=== PATIENT | male | born 1995 | race Caucasian/White ===

== ENCOUNTER 2017-01-14 20:56 | Emergency (ER) | payer OTHER ==
--- NOTE | 2017-01-15 01:13 | ED ORDER SUMMARY ---
..... Patient: ESTRELLITA JAVIER OrderSheet [facility] VisitID: [id number] [place] [address] 21y, M Registration Date/Time: 01/14/2017 ORDER SHEET Weight: 104.3 kg (stated) Allergies: No Known Drug Allergy GENERAL ORDERS: Irrigate Wounds (01:08 01/15/2017 Home Hassan) (Ack 1:31 Silas REllaNElla) (1:54 Janell Leone) MEDICATION ORDERS: IV FLUIDS: ORDER SHEET NOTES: [Electronically signed by Zahida Honeycutt R.N. (01:59 01/15/2017)] [Electronically signed by Jaylen Bobo Dr. (03:58 01/18/2017)] [Electronically locked/signed by Zahida Honeycutt R.N. (01:59 01/15/2017)]
--- NOTE | 2017-01-15 01:13 | ED ORDER SUMMARY ---
..... Patient: ESTRELLITA JAVIER OrderSheet [facility] VisitID: [id number] [place] [address] 21y, M Registration Date/Time: 01/14/2017 ORDER SHEET Weight: 104.3 kg (stated) Allergies: No Known Drug Allergy GENERAL ORDERS: Irrigate Wounds (01:08 01/15/2017 Home Hassan) (Ack 1:31 Silas REllaNElla) (1:54 Janell Leone) MEDICATION ORDERS: IV FLUIDS: ORDER SHEET NOTES: [Electronically signed by Zahida Honeycutt R.N. (01:59 01/15/2017)] [Electronically signed by Jaylen Bobo Dr. (03:58 01/18/2017)] [Electronically locked/signed by Zahida Honeycutt R.N. (01:59 01/15/2017)]
--- NOTE | 2017-01-15 01:13 | ED NURSING NOTES ---
Clinical Report - Nurses [address] [place] [address] 01/14/2017 21:00 Patient: ESTRELLITA JAVIER TRIAGE Triage time 00:27. Acuity: LEVEL 4. Chief Complaint: INJURY TO LEFT HAND. --00:32 Zahida Honeycutt R.N. 00:27 01/15/17. BP: 125/79 taken on the left arm, while sitting. HR: 79 (regular and normal rate). RR: 18. O2 saturation: 100%. Temp: 98 F. Pain level now: 09/28. --00:32 Zahida Honeycutt R.N. Weight: 104.3 kg stated. Height/Length: 69 inches Per Patient. BMI: 34. --00:27 Zahida Honeycutt R.N. Medications None. --00:30 Zahida Honeycutt R.N. Allergies No Known Drug Allergy. --00:30 Zahida Honeycutt R.N. History Arrived by private vehicle. Historian: patient. Accompanied by friend. Primary physician (none). This occurred (at about 2030 PM). He sustained a laceration from a knife. ( pt cutting onion with a new knife and slipped into left ring finger, small laceration noted bleeding controlled). 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 SOCIAL HX: Never smoker. Regular alcohol use; consumes three beers a day. Last drink was 4 hours ago. History of drug use: marijuana. No infectious disease exposure. ABUSE ASSESSMENT: No report of abuse. SELF HARM ASSESSMENT: A self harm assessment was performed. The patient answered "no" to the question "Have you recently felt down, depressed, or hopeless?", "Have you noticed less interest or pleasure in doing things?", "Do you have thoughts of harming or killing yourself?", "Are you here because you tried to hurt yourself?", "Have you ever tried to hurt yourself before today?", "Have you recently had thoughts about harming or killing others?" and "Do you have any dangerous items in your possession?". FALL RISK ASSESSMENT: Fall risk assessment completed. No fall risk identified. NUTRITIONAL RISK ASSESSMENT: The nutritional risk assessment revealed no deficiencies. FUNCTIONAL ASSESSMENT: Functional assessment: no impairments noted. LEARNING NEEDS ASSESSMENT: The learning needs assessment revealed no barriers. SKIN INTEGRITY ASSESSMENT: Skin integrity risk assessment completed. No skin integrity risk identified. --00:32 Zahdia Honeycutt R.N. PROBLEMS: no known problems. ADDITIONAL SURGERIES: Appendectomy. Toe. --00:30 Zahida Honeycutt R.N. Interventions ID band on patient. To treatment room. --00:32 Zahida Honeycutt R.N. PHYSICAL ASSESSMENT Ambulatory to room. GENERAL / NEURO / PSYCH: Oriented X 4. Alert. Appears in no acute distress. EXTREMITIES: Capillary refill is less than 2 seconds in the extremities. Extremity pulses are within normal limits. Extremities exhibit normal ROM. Neuro-vascular status intact to the extremity. Left hand: subcutaneous 1.0 cm laceration with controlled bleeding. SKIN: Skin intact. Skin is warm and dry. Single subcutaneous laceration to left ring finger. --00:33 Zahida Honeycutt R.N. NURSING PROGRESS NOTES Reassurance given. Two patient identifiers checked. Call light placed in reach. Side rails up x 2. Bed placed in lowest position. Brakes of bed on. Patient ready for evaluation- chart flagged. --00:33 Zahida Honeycutt R.N. DISPOSITION / DISCHARGE Departure time: 0154. Condition at departure: improved and stable. No learning barriers present. Discharge instructions provided and reviewed with the patient. Reviewed wound care instructions. Patient verbalized understanding. Written instructions provided in Ivorian. No medication instructions or activity restrictions. The patient was discharged home and accompanied by lean process deployment consultant. He left the Emergency Department ambulatory and via private vehicle. Clerical Office Worker driving. --01:58 Zahida Honeycutt R.N. 01:57 01/15/17. BP: deferred. HR: deferred. RR: deferred. O2 saturation: deferred. Temp: deferred. Pain level now deferred. --01:58 Zahida Honeycutt R.N. Locked/Released at 01/15/2017 1:59 by Zahida Honeycutt R.N.
--- NOTE | 2017-01-15 01:13 | ED NURSING NOTES ---
Clinical Report - Nurses [address] [place] [address] 01/14/2017 21:00 Patient: ESTRELLITA JAVIER TRIAGE Triage time 00:27. Acuity: LEVEL 4. Chief Complaint: INJURY TO LEFT HAND. --00:32 Zahida Honeycutt R.N. 00:27 01/15/17. BP: 125/79 taken on the left arm, while sitting. HR: 79 (regular and normal rate). RR: 18. O2 saturation: 100%. Temp: 98 F. Pain level now: 09/28. --00:32 Zahida Honeycutt R.N. Weight: 104.3 kg stated. Height/Length: 69 inches Per Patient. BMI: 34. --00:27 Zahida Honeycutt R.N. Medications None. --00:30 Zahida Honeycutt R.N. Allergies No Known Drug Allergy. --00:30 Zahida Honeycutt R.N. History Arrived by private vehicle. Historian: patient. Accompanied by friend. Primary physician (none). This occurred (at about 2030 PM). He sustained a laceration from a knife. ( pt cutting onion with a new knife and slipped into left ring finger, small laceration noted bleeding controlled). 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 SOCIAL HX: Never smoker. Regular alcohol use; consumes three beers a day. Last drink was 4 hours ago. History of drug use: marijuana. No infectious disease exposure. ABUSE ASSESSMENT: No report of abuse. SELF HARM ASSESSMENT: A self harm assessment was performed. The patient answered "no" to the question "Have you recently felt down, depressed, or hopeless?", "Have you noticed less interest or pleasure in doing things?", "Do you have thoughts of harming or killing yourself?", "Are you here because you tried to hurt yourself?", "Have you ever tried to hurt yourself before today?", "Have you recently had thoughts about harming or killing others?" and "Do you have any dangerous items in your possession?". FALL RISK ASSESSMENT: Fall risk assessment completed. No fall risk identified. NUTRITIONAL RISK ASSESSMENT: The nutritional risk assessment revealed no deficiencies. FUNCTIONAL ASSESSMENT: Functional assessment: no impairments noted. LEARNING NEEDS ASSESSMENT: The learning needs assessment revealed no barriers. SKIN INTEGRITY ASSESSMENT: Skin integrity risk assessment completed. No skin integrity risk identified. --00:32 Zahida Honeycutt R.N. PROBLEMS: no known problems. ADDITIONAL SURGERIES: Appendectomy. Toe. --00:30 Zahida Honeycutt R.N. Interventions ID band on patient. To treatment room. --00:32 Zahida Honeycutt R.N. PHYSICAL ASSESSMENT Ambulatory to room. GENERAL / NEURO / PSYCH: Oriented X 4. Alert. Appears in no acute distress. EXTREMITIES: Capillary refill is less than 2 seconds in the extremities. Extremity pulses are within normal limits. Extremities exhibit normal ROM. Neuro-vascular status intact to the extremity. Left hand: subcutaneous 1.0 cm laceration with controlled bleeding. SKIN: Skin intact. Skin is warm and dry. Single subcutaneous laceration to left ring finger. --00:33 Zahida Honeycutt R.N. NURSING PROGRESS NOTES Reassurance given. Two patient identifiers checked. Call light placed in reach. Side rails up x 2. Bed placed in lowest position. Brakes of bed on. Patient ready for evaluation- chart flagged. --00:33 Zahida Honeycutt R.N. DISPOSITION / DISCHARGE Departure time: 0154. Condition at departure: improved and stable. No learning barriers present. Discharge instructions provided and reviewed with the patient. Reviewed wound care instructions. Patient verbalized understanding. Written instructions provided in Indonesian. No medication instructions or activity restrictions. The patient was discharged home and accompanied by hi ranger operator. He left the Emergency Department ambulatory and via private vehicle. Strand And Binder Controller driving. --01:58 Zahida Honeycutt R.N. 01:57 01/15/17. BP: deferred. HR: deferred. RR: deferred. O2 saturation: deferred. Temp: deferred. Pain level now deferred. --01:58 Zahida Honeycutt R.N. Locked/Released at 01/15/2017 1:59 by Zahida Honeycutt R.N.
--- NOTE | 2017-01-18 03:58 | ED MED RECONCILIATION SUMMARY ---
Patient: ESTRELLITA JAVIER Medication Reconciliation Report [facility] VisitID: [id number] [address] [place] [address] 21y, M Registration Date/Time: 01/14/2017 Weight: 104.3 kg Height/Length: 69 in. BMI: 34.0 ALLERGIES: No Known Drug Allergy The patient's Home Medications are listed below: NONE. The source(s) of the original Home Medication information: Not obtained. The following Medications were given to the patient in the Emergency Department: None. The following Medications were prescribed to the patient: Acetaminophen (available over the counter): take according to label instructions. -- Jaylen Bobo Dr. Motrin (available over the counter): take according to label instructions. -- Jaylen Bobo Dr.
--- NOTE | 2017-01-18 03:58 | ED MED RECONCILIATION SUMMARY ---
Patient: ESTRELLITA JAVIER Medication Reconciliation Report [facility] VisitID: [id number] [address] [place] [address] 21y, M Registration Date/Time: 01/14/2017 Weight: 104.3 kg Height/Length: 69 in. BMI: 34.0 ALLERGIES: No Known Drug Allergy The patient's Home Medications are listed below: NONE. The source(s) of the original Home Medication information: Not obtained. The following Medications were given to the patient in the Emergency Department: None. The following Medications were prescribed to the patient: Acetaminophen (available over the counter): take according to label instructions. -- Jaylen Bobo Dr. Motrin (available over the counter): take according to label instructions. -- Jaylen Bobo Dr.
--- NOTE | 2017-01-18 03:58 | ED MAR SUMMARY ---
..... Medication Administration Record [facility] [address] [place], [place] [id number] Patient: ESTRELLITA JAVIER Visit ID: [id number] 21y, M Weight: 104.3 kg Height/Length: 69 in BMI: 34 ALLERGIES: No Known Drug Allergy
--- NOTE | 2017-01-18 03:58 | ED CLINICAL REPORT ---
Clinical Report - Physicians/Mid Levels [facility] [address] [place] [address] 01/14/2017 21:00 Patient: ESTRELLITA JAVIER Time Seen: 0045. Arrived- By private vehicle. Historian- patient. HISTORY OF PRESENT ILLNESS Chief Complaint: Injury to the left ring finger. The injury happened today. Occurred at home. ( states he was cutting an onion with a sharp knife and accidentally cut himself). The patient sustained a laceration from a knife. Patient is experiencing mild pain. Patient denies injury to the head or neck. No other injury. REVIEW OF SYSTEMS The patient sustained a laceration. No swelling, tingling, numbness, weakness or foreign body. All systems otherwise negative, except as recorded above. PAST HISTORY See nurses notes. Tetanus immunization status is up-to-date. Problems: no known problems. Medications: None. Allergies: No Known Drug Allergy. ADDITIONAL NOTES The nursing notes have been reviewed. PHYSICAL EXAM Vital Signs: 01/15/2017 00:27 BP: 125/79. HR: 79. RR: 18. O2 saturation: 100%. Temp: 98 F. Pain level now: 3/10. Blood pressure normal. Oxygen saturation normal. Appearance: Alert. Oriented X3. No acute distress. Eyes: Eyes normal inspection. No scleral icterus. CVS: Normal heart rate and rhythm. Heart sounds normal. Pulses normal. Respiratory: No respiratory distress. Breath sounds normal. Chest nontender. Abdomen: No visible injury. Soft and nontender. Bowel sounds normal. Skin: Skin warm and dry. Skin intact. Extremities: (left righ finger with 1 cm laceration. no tendon or ursula involvement. no other signs of injury. no gross contamination or FB.). No wrist injury. No hand injury. Neuro, Vascular and Tendons: Vascular status intact. Sensation intact. Motor intact. Tendon function intact. PROGRESS AND PROCEDURES Laceration Repair: Location: left ring finger. Length: 1.0cm. Complexity: simple (closed with tissue adhesive). Wound depth/shape- subcutaneous and linear. Distal neuro/vascular/tendon status normal. Anesthesia provided (none). Prepped with Hibiclens. Wound explored, irrigated and examined to the base in bloodless field extensively. Closure of skin. Skin adhesive used. Post-procedure: he is stable and there are no complications. Bleeding is controlled. Tetanus immunization up-to-date. Estimated blood loss: 3 mL. ( procedure performed after informed verbal consent obtained. Patient tolerated procedure well.). Course of Care: The patient is a pleasant 21-year-old female presenting for evaluation of on complicated laceration to the left ring finger. Informed verbal consent obtained for closure of the wound. Appears to be noncomplex in nature. Patient is agreeable to the treatment and plan. Wound is closed of the bedside with Dermabond. Patient tolerated procedure well. Wound infection risk explained to patient. No signs of infection at this time. Had a discussion with the patient in regards to his workup here in the emergency department including diagnosis, home care, follow-up, and return precautions. Including wound infection wrist precautions. All questions have been answered. The patient expressed understanding of these instructions and was agreeable to them. Disposition: Discharged. Condition: good. CLINICAL IMPRESSION 01/15/2017 00:27 BP: 125/79. HR: 79. RR: 18. O2 saturation: 100%. Temp: 98 F. Pain level now: 3/10. Blood pressure normal. Oxygen saturation normal. Single laceration to the left ring finger.No foreign body present or left fingernail injury. INSTRUCTIONS Warnings: GENERAL WARNINGS: Return or contact your physician immediately if your condition worsens or changes unexpectedly, if not improving as expected, or if other problems arise. Specifically return if pain, vomiting, bleeding, breathing difficulty or fever. Your Current Medications: CONTINUE TAKING THE FOLLOWING MEDICATIONS: None*. OTC Medications: Acetaminophen (available over the counter): take according to label instructions. Motrin (available over the counter): take according to label instructions. Follow-up: Return to the emergency department as needed. Follow up with your doctor as needed. Reason for referral: recheck today's concerns. Summary of care provided to patient via paper. Screening today revealed the patient's blood pressure to be in the normal range. The patient should follow up with a primary care provider for blood pressure management. Understanding of the discharge instructions verbalized by patient. (Electronically signed by Jaylen Bobo Dr. 01/18/2017 3:58)
--- NOTE | 2017-01-18 03:58 | ED DISCHARGE INSTRUCTIONS ---
Patient: ESTRELLITA JAVIER General Instructions [facility] VisitID: [id number] [place] [address] 21y, M Registration Date/Time: 01/14/2017 01/15/2017 00:27 BP: 125/79. HR: 79. RR: 18. O2 saturation: 100%. Temp: 98 F. Pain level now: 3/10. Blood pressure normal. Oxygen saturation normal. Single laceration to the left ring finger.No foreign body present or left fingernail injury. INSTRUCTIONS Warnings: GENERAL WARNINGS: Return or contact your physician immediately if your condition worsens or changes unexpectedly, if not improving as expected, or if other problems arise. Specifically return if pain, vomiting, bleeding, breathing difficulty or fever. Your Current Medications: CONTINUE TAKING THE FOLLOWING MEDICATIONS: None*. OTC Medications: Acetaminophen (available over the counter): take according to label instructions. Motrin (available over the counter): take according to label instructions. Follow-up: Return to the emergency department as needed. Follow up with your doctor as needed. Reason for referral: recheck today's concerns. Summary of care provided to patient via paper. Screening today revealed the patient's blood pressure to be in the normal range. The patient should follow up with a primary care provider for blood pressure management. Understanding of the discharge instructions verbalized by patient. ADDITIONAL INFORMATION Laceration (All Closures) Alaceration is a cut through the skin. This will usually require stitches (sutures) or javon if it is deep. Minor cuts may be treated with a surgical tape closure orskin glue. Home care The following guidelines will help you care for your laceration at home: Extremity, face, or trunk wounds Keep the wound clean and dry. If a bandage was applied and it becomes wet or dirty, replace it. Otherwise, leave it in place for the first 24 hours. If stitches or javon were used, clean the wound daily. After removing the bandage, wash the area with soap and water. Use a wet cotton swab to loosen and remove any blood or crust that forms. The doctor may prescribe an antibiotic cream or ointment to prevent infection. Do not stop taking this medication until you have finished the prescribed course or the doctor tells you to stop. The doctor may also prescribe medications for pain. Follow the doctors instructions for taking these medications. You may remove the bandage to shower as usual after the first 24 hours, but do not soak the area in water (no swimming) until the stitches or javon are removed. If surgical tape was used, keep the area clean and dry. If it becomes wet, blot it dry with a towel. If skin glue was used, do not scratch, rub, or pick at the adhesive film. Do not place tape directly over the film. Do not apply liquid, ointment, or creams to the wound while the film is in place. Do not clean the wound with peroxide and do not apply ointments. Avoid activities that cause heavy sweating until the film has fallen off. Protect the wound from prolonged exposure to sunlight or tanning lamps. You may shower as usual but do not soak the wound in water (no baths or swimming). The film will fall off by itself in 510 days. Scalp wounds During the first two days, you may carefully rinse your hair in the shower to remove blood, glass or dirt particles. After two days, you may shower and shampoo your hair normally. Do not soak your scalp in the tub or go swimming until the stitches or javon have been removed. Talk with your doctor before applying any antibiotic ointment to the wound. Mouth wounds Eat soft foods to reduce pain. If the cut is inside of your mouth, clean by rinsing after each meal and at bedtime with a mixture of equal parts water and hydrogen peroxide (do not swallow!). Or, you can use a cotton swab to directly apply hydrogen peroxide onto the cut. Mouth wounds can be painful when eating. You may use an [id number] local numbing solution for pain relief. If this is not available, you may use any numbing solution for teething babies. You may apply this directly to the sores with a cotton-tip swab or with your finger. Follow-up care Follow up with your health care provider. Most skin wounds heal within ten days. Mouth and facial wounds heal within five days. However, even with proper treatment, a wound infection may sometimes occur. Therefore, you should check the wound daily for signs of infection listed below. Stitches should be removed from the face within five days; stitches and javon should be removed from other parts of the body within 714 days. If dissolving stitches were used in the mouth, these will fall out or dissolve without the need for removal. If tape closures were used, remove them yourself if they have not fallen off after 7 days. Ifskin glue was used, the film will fall off by itself in 510 days. When to seek medical care Get prompt medical attention if any of these occur: Bleeding not controlled by direct pressure Signs of infection, including increasing pain in the wound, increasing wound redness or swelling, or pus coming from the wound Fever of 100.4F (38C) or higher, or as directed by your health care provider Stitches or javon come apart or fall out or surgical tape falls off before 7 days Wound edges re-open You have been given the following additional information: Laceration, All (Electronically signed by Jaylen Bobo Dr. 01/18/2017 3:58)
--- NOTE | 2017-01-18 03:58 | ED MAR SUMMARY ---
..... Medication Administration Record [facility] [address] [place], [place] [id number] Patient: ESTRELLITA JAVIER Visit ID: [id number] 21y, M Weight: 104.3 kg Height/Length: 69 in BMI: 34 ALLERGIES: No Known Drug Allergy
== END 2017-01-15 01:54 | disposition home or self-care (01) ==
LOC: ED SRH 20:56
DX: S61.215A Laceration without foreign body of left ring finger without damage to nail, initial encounter (principal); W26.0XXA Contact with knife, initial encounter; Y92.000 Kitchen of unspecified non-institutional (private) residence as the place of occurrence of the external cause